=== PATIENT | female | born 1950 | race Caucasian/White ===

== ENCOUNTER → 2016-11-20 | Outpatient (REF) | payer OTHER ==
[~2016-11-20] MED LIST: CLOB-49 EX; COMB0.2S OP; ISTA0.5S OP; MULTCAP8 PO; PRAV40TA2 PO; XALA0.002 OU; [UNRECOGNIZED DRUG - CODE] XX
[2016-11-20 11:51] LABS: ALBUMIN 3.8 GM/DL (3.2-5.2); ALBUMIN/GLOBULIN RATIO 1.03 (1.00-1.93); ALKALINE PHOSPHATASE 83 U/L (45-117); ALT/SGPT 27 U/L (12-78); ANION GAP 8 MEQ/L (8-16); AST/SGOT 21 U/L (15-37); BILIRUBIN,TOTAL 0.5 MG/DL (0.2-1.0); BLOOD UREA NITROGEN 27 MG/DL (7-18); CALCIUM LEVEL 9.1 MG/DL (8.8-10.2); CARBON DIOXIDE LEVEL 28 MEQ/L (21-32); CHLORIDE LEVEL 108 MEQ/L (98-107); CHOLESTEROL LEVEL 220 MG/DL (<200); GLOMERULAR FILTRATION RATE > 60.0 (>45); GLUCOSE, FASTING 96 MG/DL (80-110); POTASSIUM SERUM 4.2 MEQ/L (3.5-5.1); SODIUM LEVEL 144 MEQ/L (136-145); TOTAL PROTEIN 7.5 GM/DL (6.4-8.2); TRIGLYCERIDES LEVEL 204 MG/DL (<150)
== END ==
LOC: M SFHCPLAZ 08:27
PROVIDERS: ATTEND Family Medicine
DX: E78.2 Mixed hyperlipidemia (principal)

== ENCOUNTER → 2017-08-23 | Outpatient (REF) | payer OTHER ==
[~2017-08-23] MED LIST changes: -XALA0.002 OU; +XALA0.007 OU
== END ==
LOC: M SFHCWAGY 09:50
PROVIDERS: ATTEND Nurse Practitioner Family
DX: Z12.4 Encounter for screening for malignant neoplasm of cervix (principal); N95.2 Postmenopausal atrophic vaginitis

== ENCOUNTER → 2017-08-23 | Outpatient (CLI) | payer OTHER ==
--- NOTE | 2017-08-23 13:43 | REPMRS ---
Patient History The patient states she had a clinical breast exam in 08/19 Patient is postmenopausal and is nulliparous. No known family history of cancer. Digital Woman Screen Mammo: August 23, 2017 - Exam #: [id number] Bilateral CC and MLO view(s) were taken. Technologist: Darlene Galo, Technologist Prior study comparison: August 21, 2016, digital woman screen mammo performed at [facility]. August 19, 2015, digital woman screen mammo performed at [facility]. FINDINGS: The breast tissue is heterogeneously dense. This may lower the sensitivity of mammography. There has been no change in the appearance of the mammogram from the prior studies. There is a moderate amount of residual fibroglandular tissue which is fairly symmetric. There is no interval development of dominant mass, areas of architectural distortion, or clustered microcalcification typical of malignancy. ASSESSMENT: BI-RADS/ACR category 1 mammogram. Negative. Recommendation Routine screening mammogram in 1 year (for women over age 40). This mammogram was interpreted with the aid of an FDA-approved computer-aided dectection system. Electronically Signed By: Kota Velázquez MD 08/23/17 [id number]
== END ==
LOC: M WHC 09:02
PROVIDERS: ATTEND Family Medicine
DX: Z12.31 Encounter for screening mammogram for malignant neoplasm of breast (principal); R92.8 Other abnormal and inconclusive findings on diagnostic imaging of breast; Z78.0 Asymptomatic menopausal state

== ENCOUNTER → 2017-10-22 | Outpatient (REF) | payer OTHER ==
[2017-10-22 12:24] LABS: ALBUMIN 4.1 GM/DL (3.2-5.2); ALBUMIN/GLOBULIN RATIO 1.14 (1.00-1.93); ALKALINE PHOSPHATASE 77 U/L (45-117); ALT/SGPT 25 U/L (12-78); ANION GAP 9 MEQ/L (8-16); AST/SGOT 18 U/L (7-37); BILIRUBIN,TOTAL 0.7 MG/DL (0.2-1.0); BLOOD UREA NITROGEN 25 MG/DL (7-18); CALCIUM LEVEL 9.5 MG/DL (8.8-10.2); CARBON DIOXIDE LEVEL 27 MEQ/L (21-32); CHLORIDE LEVEL 106 MEQ/L (98-107); CHOLESTEROL LEVEL 219 MG/DL (<200); CHOLESTEROL RISK RATIO 3.775 (<5); CREATININE FOR GFR 0.88 MG/DL (0.55-1.30); FREE T4 1.11 NG/DL (0.76-1.46); GLOMERULAR FILTRATION RATE > 60.0 (>45); GLUCOSE, FASTING 92 MG/DL (70-100); HDL CHOLESTEROL 58 MG/DL (>40); LDL CHOLESTEROL 112.4 MG/DL (<100); NON-HDL-C 161 MG/DL; POTASSIUM SERUM 4.1 MEQ/L (3.5-5.1); SODIUM LEVEL 142 MEQ/L (136-145); TOTAL PROTEIN 7.7 GM/DL (6.4-8.2); TRIGLYCERIDES LEVEL 243 MG/DL (<150)
== END ==
LOC: M SFHCPLAZ 08:51
DX: E78.2 Mixed hyperlipidemia (principal)
CPT/HCPCS: 84443

== ENCOUNTER 2017-12-04 07:38 | Day surgery (SDC) | payer OTHER ==
[~2017-12-04 07:38] MED LIST changes: +ACETAMINOPHEN 325 MG TAB PO; -CLOB-49 EX; -COMB0.2S OP; -ISTA0.5S OP; -MULTCAP8 PO; +PHENYLEPHRINE HCL 10 % OPHTH. SOL 5ML OS; -PRAV40TA2 PO; +PROPARACAINE 0.5% OPHTH SOL 15ML OS; -XALA0.007 OU; -[UNRECOGNIZED DRUG - CODE] XX
[2017-12-04] MEDS: LIDOCAINE 3.5 % 1ML OPHTH TOPICAL GEL OU (08:53)
[2017-12-04] MEDS: PHENYLEPHRINE 2.5% OPHTH SOL 2ML OS (08:53)
[2017-12-04] MEDS: TROPICAMIDE 1% OPHTH SOLN 2ML OS (08:53)
[2017-12-04] MEDS: OFLOXACIN 0.3 % (OCUFLOX) OPTH SOL 5ML OS (08:54)
[2017-12-04] MEDS: CYCLOPENTOLATE 2% OPHTH SOLN 2ML BTL OS (08:54)
[2017-12-04] MEDS ORDERED: fentaNYL 100 MCG/2 ML INJECTION (J3010) As Ordered (09:30)
[2017-12-04] MEDS ORDERED: MIDAZOLAM INJ 2 MG/2 ML VIAL (J2250) As Ordered (09:31)
[2017-12-04] MEDS: BALANCED SALT IRRIGATION SOLUTION 500ML BAG (FOR OR EYE MACHINE) As Ordered (10:00)
[2017-12-04] MEDS: POVIDONE-IODINE 5% OPHTH PREP SOL 30ML As Ordered (10:00)
[2017-12-04] MEDS: HEALON DUET (HEALON 10MG/ML 0.55ML & HEALON ENDOCOAT 30MG/ML 0.85ML) As Ordered (10:00)
[2017-12-04] MEDS: CEFUROXIME 1MG/0.1ML INTRACAMERAL INJ As Ordered (10:00)
[2017-12-04] MEDS: LIDOCAINE 1% SDV 5 ML VIAL As Ordered (10:00)
[2017-12-04] MEDS ORDERED: TRIMETHOBENZAMIDE 300 MG CAP PO (10:30)
[2017-12-04] MEDS: KETOROLAC 0.5% OPHTH SOLN OS (10:36)
[2017-12-04] MEDS: AcetaZOLAMIDE 500 MG ER CAP PO (10:36)
== END 2017-12-04 10:52 | disposition home or self-care (01) ==
LOC: M SDC 07:38
DX: H25.12 Age-related nuclear cataract, left eye (principal); E78.2 Mixed hyperlipidemia; Z79.899 Other long term (current) drug therapy; E55.9 Vitamin D deficiency, unspecified; N90.4 Leukoplakia of vulva; E74.9 Disorder of carbohydrate metabolism, unspecified; M43.6 Torticollis
CPT/HCPCS: 66984

== ENCOUNTER → 2018-08-29 | Outpatient (CLI) | payer OTHER ==
[~2018-08-29] MED LIST changes: -ACETAMINOPHEN 325 MG TAB PO; +ALPH0.156 OU; +CALC600T60 PO; +CLOB-49 EX; +CLOTCRE3 TOP; +COMB0.2S OP; +ISTA0.5S OP; +MULTCAP8 PO; -PHENYLEPHRINE HCL 10 % OPHTH. SOL 5ML OS; +PRAV40TA2 PO; -PROPARACAINE 0.5% OPHTH SOL 15ML OS; +XALA0.007 OU; +[UNRECOGNIZED DRUG - CODE] XX
--- NOTE | 2018-08-29 10:09 | REP ---
DIGITAL SCREENING BILATERAL MAMMOGRAPHY WITH CAD AND 3D TOMOSYNTHESIS: Comparison mammography August 23, 2017, August 21, 2016, and August 19, 2015. MAMMOGRAPHIC FINDINGS: Breast parenchyma is heterogeneously dense bilaterally in a pattern which may inhibit the sensitivity of mammography as before. The MLO view of the left breast demonstrates a well-circumscribed 6 mm nodule inferiorly which is not seen with confidence on the orthogonal CC view. This is observed on tomosynthesis imaging. This merits further evaluation. It is not definitely apparent previously. Breast parenchyma is otherwise unchanged and unremarkable. IMPRESSION: BIRADS/ACR category 0 mammogram, incomplete. Additional imaging and/or prior images needed. Possible nodular neodensity inferiorly in the left breast merits further evaluation. Diagnostic left breast mammography and focused left breast sonography recommended. This mammogram was interpreted with the aid of an FDA-approved computer-aided detection system. The patient states that she/he has not had a clinical breast exam in over a year. The patient letter being requested is M0. This patient's estimated Tyrer-Cuzick lifetime risk assessment for the breast cancer is 5.9 %.
== END ==
LOC: M WHC 08:55
PROVIDERS: ATTEND Family Medicine
DX: Z12.31 Encounter for screening mammogram for malignant neoplasm of breast (principal); N63.20 Unspecified lump in the left breast, unspecified quadrant

== ENCOUNTER → 2018-09-04 | Outpatient (CLI) | payer MEDICARE, OTHER ==
--- NOTE | 2018-09-04 17:51 | REP ---
Digital diagnostic unilateral left breast mammography with CAD and focused left breast sonography: History: Screening mammography from August 29, 2018 was BIRADS category 0 because of a possible 6 mm nodular neodensity seen on the MLO projection images inferiorly in the left breast. Diagnostic imaging was recommended. Comparison is also made with prior mammography from August 23, 2017 and August 21, 2016. Mammographic findings: Magnified focal spot compression CC, laterally exaggerated CC, ML, and MLO images are acquired of the left breast. These demonstrate heterogeneously dense breast parenchyma as before. A well-circumscribed 6 mm nodular opacity is seen on the MLO and possibly on the true ML view of the left breast inferiorly. However, this could not be visualized or corroborated on the CC projection images. It was not visualized on 3-D tomosynthesis images in the craniocaudal plane either. Sonographic findings: Focused left breast sonography is performed inferiorly from 3 o'clock to 9 o'clock. Heterogeneous fibroglandular background echotexture is seen. No cyst, mass or suspicious abnormality is observed. Impression: BIRADS category 3 probably benign findings. 6 mm well-circumscribed nodule seen inferiorly on the MLO mammography and MLO 3-D tomosynthesis images. 6-month follow-up left breast mammography recommended. BI-RADS/ACR category 3 mammogram. Probably benign findings. Initial short-term followup (usually 6 month) examination. This mammogram was interpreted with the aid of an FDA-approved computer-aided detection system. The patient states that she/he has not had a clinical breast exam in over a year. The patient letter being requested is m#3 . Electronically Signed by Kai Villa MD 09/04/2018 06:59 P
== END ==
LOC: M RAD 14:43
PROVIDERS: ATTEND Family Medicine
DX: N63.20 Unspecified lump in the left breast, unspecified quadrant (principal); R92.8 Other abnormal and inconclusive findings on diagnostic imaging of breast

== ENCOUNTER → 2018-11-06 | Outpatient (REF) | payer OTHER ==
[2018-11-06 10:49] LABS: ALBUMIN 3.8 GM/DL (3.2-5.2); ALT/SGPT 26 U/L (12-78); BILIRUBIN,TOTAL 0.6 MG/DL (0.2-1.0); BLOOD UREA NITROGEN 18 MG/DL (7-18); CALCIUM LEVEL 9.4 MG/DL (8.8-10.2); CARBON DIOXIDE LEVEL 28 MEQ/L (21-32); CHLORIDE LEVEL 104 MEQ/L (98-107); CHOLESTEROL LEVEL 202 MG/DL (<200); CHOLESTEROL RISK RATIO 4.208 (<5); GLOMERULAR FILTRATION RATE > 60.0 (>39); GLUCOSE, FASTING 95 MG/DL (70-100); HDL CHOLESTEROL 48 MG/DL (>40); LDL CHOLESTEROL 114 MG/DL (<100); NON-HDL-C 154 MG/DL; POTASSIUM SERUM 4.3 MEQ/L (3.5-5.1); SODIUM LEVEL 139 MEQ/L (136-145); TOTAL PROTEIN 7.5 GM/DL (6.4-8.2); TRIGLYCERIDES LEVEL 198 MG/DL (<150)
[2018-11-06 10:57] LABS: TOTAL 25(OH) VITAMIN D 44.8 NG/ML (30.0-100.0)
== END ==
LOC: M SFHCPLAZ 08:34
PROVIDERS: ATTEND Family Medicine
DX: E78.2 Mixed hyperlipidemia (principal); E55.9 Vitamin D deficiency, unspecified

== ENCOUNTER → 2019-01-24 | Outpatient (CLI) | payer MEDICARE ==
--- NOTE | 2019-01-24 14:29 | REP ---
DIAGNOSTIC MAMMOGRAM LEFT BREAST WITH 3D TOMOSYNTHESIS: No family history of breast cancer. Tyrer-Cuzick lifetime risk of breast cancer 5.9%. Diagnostic mammogram left breast is performed with 3D tomosynthesis. Comparison made with several prior studies, including the most recent of 08/29/2018 and 09/04/2018. These exams showed a nodular density on left MLO and ML views inferiorly, which was not visualized on the left CC view nor by ultrasound. There is moderately dense fibroglandular tissue in a heterogeneous pattern. The previously noted nodular density is not seen on today's exam. Parenchymal pattern is otherwise unchanged. No new mass or clustered microcalcifications are seen. IMPRESSION: BIRADS 2: BI-RADS/ACR category 2 mammogram. Benign Findings. ACR 2 benign. Previously noted nodular density is not visualized on today's examination. Recommend followup bilateral mammogram August 2019. This mammogram was interpreted with the aid of an FDA-approved computer-aided detection system. The patient states she/he had a clinical breast exam in 08/2018. The patient letter being requested is M1. Electronically Signed by Kota Velázquez MD 01/28/2019 10:03 A
== END ==
LOC: M RAD 13:05
PROVIDERS: ATTEND Family Medicine
DX: R92.8 Other abnormal and inconclusive findings on diagnostic imaging of breast (principal)
CPT/HCPCS: 77065; G0279

== ENCOUNTER → 2019-02-06 | Outpatient (CLI) | payer MEDICARE ==
--- NOTE | 2019-02-07 11:17 | DEXA ---
AP SPINE L1 - L4 0.981 -1.7 0.0 LT FEMUR TOTAL 0.897 -0.9 0.6 LT NECK 0.813 -1.6 0.1 RT FEMUR TOTAL 0.888 -0.9 0.5 RT NECK 0.823 -1.5 0.2 TOTAL BODY TOTAL OTHER COMMENTS: There is low bone density of the spine and hips. The decreased density of the spine does represent a significant change. The decreased density of the left hip does represent a significant change. The decreased density of the right hip does represent a significant change. The density of the spine has decreased 5.0% since the initial exam on 07/14/2008. The spine density has decreased 4.1% since the most recent exam on 08/04/2011. The density of the left hip has decreased 3.3% since the initial exam on 07/14/2008. The density of the left hip has decreased 2.1% since the most recent exam on 08/04/2011. The density of the right hip has decreased 7.0% since the initial exam on 07/14/2008. The density of the right hip has decreased 2.5% since the most recent exam on 08/04/2011. FOLLOW-UP: Recommendation for the next bone density exam: 2 years. SARAH
== END ==
LOC: M WHC 09:08
PROVIDERS: ATTEND Family Medicine
DX: M85.89 Other specified disorders of bone density and structure, multiple sites (principal)

== ENCOUNTER → 2019-08-29 | Outpatient (REF) | payer MEDICARE | LOC: M PLALAB 09:26 | PROVIDERS: ATTEND Nurse Practitioner Family | DX: Z12.4 Encounter for screening for malignant neoplasm of cervix (principal); R87.625 Unsatisfactory cytologic smear of vagina; N95.2 Postmenopausal atrophic vaginitis ==

== ENCOUNTER → 2019-08-29 | Outpatient (CLI) | payer MEDICARE ==
--- NOTE | 2019-08-29 10:41 | REPMRS ---
Patient History The patient states she had a clinical breast exam in August 2019.Patient is postmenopausal and is nulliparous. Family history of endometrial cancer at age 76 in sister. No Hormone Replacement Therapy No Breast Complaints. 3D TOMOSYNTHESIS WAS PERFORMED. The [facility] lifetime risk for breast cancer is 5.6%. Digital Woman Screen Mammo: August 29, 2019 - Exam #: [id number] Bilateral CC and MLO view(s) were taken. Technologists: Ana Hernandez, Technologist; Hilda Montes De Oca, Prior study comparison: January 24, 2019, left breast digital mammo diagnostic unilateral, performed at [facility]. September 04, 2018, left breast digital mammo diagnostic unilateral, performed at [facility]. FINDINGS: The breast tissue is heterogeneously dense. This may lower the sensitivity of mammography. There has been no change in the appearance of the mammogram from the prior studies. There is a moderate amount of residual fibroglandular tissue which is fairly symmetric. There is no interval development of dominant mass, areas of architectural distortion, or clustered microcalcification typical of malignancy. Assessment: BI-RADS/ACR category 1 mammogram. Negative Mammogram. Recommendation Routine screening mammogram in 1 year (for women over age 40). This mammogram was interpreted with the aid of an FDA-approved computer-aided dectection system. Electronically Signed By: Kota Velázquez MD 08/29/19 [id number]
== END ==
LOC: M WHC 09:24
PROVIDERS: ATTEND Family Medicine
DX: Z12.31 Encounter for screening mammogram for malignant neoplasm of breast (principal); Z78.0 Asymptomatic menopausal state; N95.2 Postmenopausal atrophic vaginitis; R87.625 Unsatisfactory cytologic smear of vagina
CPT/HCPCS: 77063; 77067; G0101; G0123

== ENCOUNTER → 2019-11-21 | Outpatient (REF) | payer MEDICARE ==
[2019-11-21 11:45] LABS: ALBUMIN 3.9 GM/DL (3.2-5.2); ALT/SGPT 28 U/L (12-78); BILIRUBIN,TOTAL 0.7 MG/DL (0.2-1.0); BLOOD UREA NITROGEN 23 MG/DL (7-18); CALCIUM LEVEL 9.2 MG/DL (8.8-10.2); CARBON DIOXIDE LEVEL 29 MEQ/L (21-32); CHLORIDE LEVEL 107 MEQ/L (98-107); CHOLESTEROL LEVEL 212 MG/DL (<200); CHOLESTEROL RISK RATIO 3.925 (<5); CREATININE FOR GFR 0.87 MG/DL (0.55-1.30); GLOMERULAR FILTRATION RATE > 60.0 (>39); GLUCOSE, FASTING 97 MG/DL (70-100); HDL CHOLESTEROL 54 MG/DL (>40); LDL CHOLESTEROL 120 MG/DL (<100); NON-HDL-C 158 MG/DL; POTASSIUM SERUM 4.1 MEQ/L (3.5-5.1); SODIUM LEVEL 140 MEQ/L (136-145); TOTAL PROTEIN 7.6 GM/DL (6.4-8.2); TRIGLYCERIDES LEVEL 192 MG/DL (<150)
[2019-11-21 11:53] LABS: TOTAL 25(OH) VITAMIN D 59.2 NG/ML (30.0-100.0)
== END ==
LOC: M SFHCADAM 08:52
PROVIDERS: ATTEND Family Medicine
DX: E78.2 Mixed hyperlipidemia (principal); E55.9 Vitamin D deficiency, unspecified; Z79.899 Other long term (current) drug therapy

== ENCOUNTER → 2020-08-31 | Outpatient (CLI) | payer MEDICARE ==
--- NOTE | 2020-08-31 11:26 | REPMRS ---
Patient History The patient states she had a clinical breast exam in August 2020.Family history of endometrial cancer at age 76 in sister. No Hormone Replacement Therapy Digital Woman Screen Mammo: August 31, 2020 - Exam #: [id number] Bilateral CC and MLO view(s) were taken. Technologist: Ana Hernandez, Technologist Prior study comparison: August 29, 2019, bilateral digital woman screen mammo performed at [facility]. January 24, 2019, left breast digital mammo diagnostic unilateral, performed at [facility]. August 29, 2018, bilateral digital woman screen mammo performed at [facility]. August 23, 2017, digital woman screen mammo performed at [facility]. FINDINGS: There are scattered fibroglandular densities. The Volpara volumetric breast density category is: B. There is a moderate amount of residual fibroglandular tissue which is fairly symmetric. There is no interval development of dominant mass, architectural distortion, or grouped microcalcification typical of malignancy. There has been no change in the appearance of the mammogram from the prior studies. 3-D tomosynthesis shows no additional findings. Assessment: BI-RADS/ACR category 1 mammogram. Negative Mammogram. Recommendation Routine screening mammogram of both breasts in 1 year (for women over age 40). This patient's [facility] Lifetime Breast Cancer RIsk is estimated at 5.2 %. This mammogram was interpreted with the aid of an FDA-approved computer-aided dectection system. Electronically Signed By: Dev Villa MD 08/31/20 [id number]
== END ==
LOC: M WHC 10:03
PROVIDERS: ATTEND Nurse Practitioner Family
DX: Z12.31 Encounter for screening mammogram for malignant neoplasm of breast (principal); Z80.49 Family history of malignant neoplasm of other genital organs
CPT/HCPCS: 77063; 77067; G0463

== ENCOUNTER → 2021-03-10 | Outpatient (CLI) | payer BC, MEDICARE ==
[2021-03-10 11:06] LABS: ALBUMIN 3.9 GM/DL (3.2-5.2); ALT/SGPT 26 U/L (12-78); BILIRUBIN,TOTAL 0.7 MG/DL (0.2-1.0); BLOOD UREA NITROGEN 21 MG/DL (7-18); CALCIUM LEVEL 9.1 MG/DL (8.8-10.2); CARBON DIOXIDE LEVEL 32 MEQ/L (21-32); CHLORIDE LEVEL 104 MEQ/L (98-107); CHOLESTEROL LEVEL 226 MG/DL (<200); CHOLESTEROL RISK RATIO 3.424 (<5); CREATININE FOR GFR 0.86 MG/DL (0.55-1.30); FREE T4 0.97 NG/DL (0.76-1.46); GLOMERULAR FILTRATION RATE > 60.0 (>39); GLUCOSE, FASTING 94 MG/DL (70-100); HDL CHOLESTEROL 66 MG/DL (>40); LDL CHOLESTEROL 125 MG/DL (<100); NON-HDL-C 160 MG/DL; POTASSIUM SERUM 4.4 MEQ/L (3.5-5.1); SODIUM LEVEL 138 MEQ/L (136-145); TOTAL PROTEIN 7.6 GM/DL (6.4-8.2); TRIGLYCERIDES LEVEL 175 MG/DL (<150)
[2021-03-10 11:20] LABS: HEMOGLOBIN A1c 5.7 %
== END ==
LOC: M PLALAB 08:25
PROVIDERS: ATTEND Family Medicine
DX: E78.2 Mixed hyperlipidemia (principal)

== ENCOUNTER → 2021-09-06 | Outpatient (CLI) | payer MEDICARE ==
--- NOTE | 2021-09-06 11:13 | REPMRS ---
Patient History The patient states she had a clinical breast exam on 09-06-2021. Family history of endometrial cancer at age 76 in sister. No Hormone Replacement Therapy Tomosynthesis is performed. Volpara breast density is c. [facility] lifetime risk of breast cancer 4.9%. Patient states no breast complaints today. Patient has signed MRS History Sheet. Digital Woman Screen Mammo: September 06, 2021 - Exam #: [id number] Bilateral CC and MLO view(s) were taken. Technologist: Nikki Kent, Entry Level Software Engineer Prior study comparison: August 31, 2020, bilateral digital woman screen mammo performed at [facility]. August 29, 2019, bilateral digital woman screen mammo performed at [facility]. FINDINGS: The breast tissue is heterogeneously dense. This may lower the sensitivity of mammography. There has been no change in the appearance of the mammogram from the prior studies. There is a moderate amount of residual fibroglandular tissue which is fairly symmetric. There is no interval development of dominant mass, areas of architectural distortion, or clustered microcalcification typical of malignancy. Assessment: BI-RADS/ACR category 1 mammogram. Negative Mammogram. Recommendation Routine screening mammogram in 1 year (for women over age 40). This mammogram was interpreted with the aid of an FDA-approved computer-aided dectection system. Electronically Signed By: Kota Velázquez MD 09/06/21 [id number]
== END ==
LOC: M WHC 09:05
PROVIDERS: ATTEND Nurse Practitioner Women's Health
DX: Z12.31 Encounter for screening mammogram for malignant neoplasm of breast (principal); Z80.49 Family history of malignant neoplasm of other genital organs

== ENCOUNTER → 2022-04-27 | Outpatient (CLI) | payer MEDICARE, BC ==
[2022-04-27 15:41] LABS: ALBUMIN 4.1 GM/DL (3.2-5.2); ALT/SGPT 23 U/L (12-78); BILIRUBIN,TOTAL 0.7 MG/DL (0.2-1.0); BLOOD UREA NITROGEN 25 MG/DL (7-18); CALCIUM LEVEL 10.1 MG/DL (8.8-10.2); CARBON DIOXIDE LEVEL 28 MEQ/L (21-32); CHLORIDE LEVEL 104 MEQ/L (98-107); CHOLESTEROL LEVEL 236 MG/DL (<200); CHOLESTEROL RISK RATIO 3.575 (<5); CREATININE FOR GFR 0.87 MG/DL (0.55-1.30); FREE T4 1.03 NG/DL (0.76-1.46); GLOMERULAR FILTRATION RATE > 60.0 (>39); GLUCOSE, FASTING 94 MG/DL (70-100); HDL CHOLESTEROL 66 MG/DL (>40); LDL CHOLESTEROL 142 MG/DL (<100); NON-HDL-C 170 MG/DL; POTASSIUM SERUM 4.4 MEQ/L (3.5-5.1); SODIUM LEVEL 138 MEQ/L (136-145); TOTAL PROTEIN 7.6 GM/DL (6.4-8.2); TRIGLYCERIDES LEVEL 139 MG/DL (<150)
[2022-04-27 16:16] LABS: HEMOGLOBIN A1c 5.7 %
== END ==
LOC: M PLALAB 09:00
PROVIDERS: ATTEND Family Medicine
DX: E78.2 Mixed hyperlipidemia (principal); E74.9 Disorder of carbohydrate metabolism, unspecified; Z79.899 Other long term (current) drug therapy

== ENCOUNTER → 2022-12-20 | Outpatient (CLI) | payer MEDICARE | LOC: M WHC 08:50 | PROVIDERS: ATTEND Advanced Practice Midwife | DX: Z12.31 Encounter for screening mammogram for malignant neoplasm of breast (principal) ==

== ENCOUNTER → 2023-05-10 | Outpatient (CLI) | payer MEDICARE ==
[2023-05-10 14:37] LABS: HEMATOCRIT 44.9 % (36.0-47.0); HEMOGLOBIN 14.1 g/dl (12.0-15.5); MEAN CORPUSCULAR HEMOGLOBIN 28.1 pg (27.0-33.0); MEAN CORPUSCULAR HGB CONC 31.4 g/dl (32.0-36.5); MEAN CORPUSCULAR VOLUME 89.4 fl (80.0-96.0); PLATELET COUNT, AUTOMATED 271 10^3/uL (150-450); RED BLOOD COUNT 5.02 10^6/uL (4.00-5.40); WHITE BLOOD COUNT 6.1 10^3/uL (4.0-10.0)
[2023-05-10 14:40] LABS: ALBUMIN 3.9 G/DL (3.2-5.2); ALKALINE PHOSPHATASE 86 U/L (46-116); ALT/SGPT 25 U/L (7.0-40); AST/SGOT 16 U/L (<34); BILIRUBIN,TOTAL 0.8 MG/DL (0.3-1.2); BLOOD UREA NITROGEN 30 MG/DL (9-23); CALCIUM LEVEL 9.8 MG/DL (8.3-10.6); CARBON DIOXIDE LEVEL 28 MMOL/L (20-31); CHLORIDE LEVEL 106 MMOL/L (98-107); CHOLESTEROL LEVEL 218 MG/DL (<200); CHOLESTEROL RISK RATIO 3.57 (<5); CREATININE FOR GFR 0.89 MG/DL (0.55-1.30); GLOMERULAR FILTRATION RATE > 60.0 (>39); GLUCOSE, FASTING 93 MG/DL (74-106); HDL CHOLESTEROL 60.9 MG/DL (>40); LDL CHOLESTEROL 121.3 MG/DL (<100); NON-HDL-C 157.1 MG/DL; POTASSIUM SERUM 4.6 MMOL/L (3.5-5.1); SODIUM LEVEL 143 MMOL/L (136-145); TOTAL PROTEIN 7.5 G/DL (5.7-8.2); TRIGLYCERIDES LEVEL 179 MG/DL (<150)
[2023-05-10 15:03] LABS: HEMOGLOBIN A1c 5.5 % (4.0-6.0)
== END ==
LOC: M PLALAB 09:51
PROVIDERS: ATTEND Family Medicine
DX: E78.2 Mixed hyperlipidemia (principal)

== ENCOUNTER 2023-12-20 09:20 | Day surgery (SDC) | payer MEDICARE ==
[~2023-12-20] VITALS: Ht 149.9 cm; Wt 54.6 kg
[~2023-12-20 09:20] MED LIST changes: +AUGM0.0534 TOP; +DORZ2SOL5 OU; +OMEG10002 PO; +RHOP0.02 OU; +THERTAB52 PO
[2023-12-20] MEDS: LIDOCAINE 3.5 % 1ML OPHTH TOPICAL GEL OU ONE (09:58)
[2023-12-20] MEDS: OFLOXACIN 0.3 % (OCUFLOX) OPTH SOL 5ML OD ONE (09:58)
[2023-12-20] MEDS: PHENYLEPHRINE 2.5% OPHTH SOL 2ML OD SCH (09:59)
[2023-12-20] MEDS: TROPICAMIDE 1% OPHTH SOLN 15ML OD SCH (09:59)
[2023-12-20] MEDS: PHENYLEPHRINE 10% OPHTH SOL 5ML OD PRN (09:59)
[2023-12-20] MEDS: ATROPINE SULFATE 1% OPHTH SOLN 2ML BTL OD SCH (09:59)
[2023-12-20] MEDS ORDERED: MIDAZOLAM INJ 2MG/2ML VIAL As Ordered ONE (10:54)
[2023-12-20] MEDS: BSS IRRIG/VANCO(10MG)/TOBRA(5MG)/EPINEPH(1:1000-0.5CC)500ML BAG-ORONLY As Ordered ONE (11:08)
[2023-12-20] MEDS: LIDOCAINE 1% SDV 5ML VIAL As Ordered ONE (11:08)
[2023-12-20] MEDS ORDERED: fentaNYL 100 MCG/2 ML INJECTION As Ordered ONE (11:09)
[2023-12-20] MEDS: VISCOAT 40-30MG/ML 0.5ML SYRINGE As Ordered ONE (11:12)
[2023-12-20] MEDS: CEFUROXIME 1MG/0.1ML INTRACAMERAL INJ As Ordered ONE (11:20)
[2023-12-20 11:30] VITALS: BP 154/75; TEMP 97; O2SAT 100
== END 2023-12-20 12:00 | disposition home or self-care (01) ==
LOC: M SDC 09:20
PROVIDERS: ATTEND Ophthalmology
DX: H25.11 Age-related nuclear cataract, right eye (principal); H57.03 Miosis; Z79.899 Other long term (current) drug therapy
CPT/HCPCS: 66982; A4649; J0697; J2250; J3010; V2632

== ENCOUNTER → 2023-12-25 | Outpatient (CLI) | payer MEDICARE | LOC: M WHC 09:27 | PROVIDERS: ATTEND Advanced Practice Midwife | DX: Z12.31 Encounter for screening mammogram for malignant neoplasm of breast (principal); R92.8 Other abnormal and inconclusive findings on diagnostic imaging of breast ==

== ENCOUNTER → 2024-01-16 | Outpatient (CLI) | payer MEDICARE | LOC: M WHC 08:32 | PROVIDERS: ATTEND Advanced Practice Midwife | DX: Z12.31 Encounter for screening mammogram for malignant neoplasm of breast (principal); N64.59 Other signs and symptoms in breast | CPT/HCPCS: 77065; G0279 ==

== ENCOUNTER → 2024-05-01 | Outpatient (CLI) | payer MEDICARE ==
[2024-05-01 10:33] LABS: HEMATOCRIT 44.7 % (36.0-47.0); HEMOGLOBIN 14.5 g/dl (12.0-15.5); MEAN CORPUSCULAR HEMOGLOBIN 28.3 pg (27.0-33.0); MEAN CORPUSCULAR HGB CONC 32.4 g/dl (32.0-36.5); MEAN CORPUSCULAR VOLUME 87.3 fl (80.0-96.0); PLATELET COUNT, AUTOMATED 223 10^3/uL (150-450); RED BLOOD COUNT 5.12 10^6/uL (4.00-5.40)
[2024-05-01 11:01] LABS: HEMOGLOBIN A1c 5.6 % (4.0-6.0)
[2024-05-01 11:03] LABS: ALKALINE PHOSPHATASE 84 U/L (46-116); ALT/SGPT 18 U/L (7.0-40); AST/SGOT 16 U/L (<34); BILIRUBIN,TOTAL 0.8 MG/DL (0.3-1.2); BLOOD UREA NITROGEN 22 MG/DL (9-23); CALCIUM LEVEL 9.9 MG/DL (8.3-10.6); CARBON DIOXIDE LEVEL 29 MMOL/L (20-31); CHLORIDE LEVEL 106 MMOL/L (98-107); CHOLESTEROL LEVEL 244 MG/DL (<200); CHOLESTEROL RISK RATIO 4.01 (<5); CREATININE FOR GFR 0.77 MG/DL (0.55-1.30); GLOMERULAR FILTRATION RATE > 60.0 (>39); GLUCOSE, FASTING 93 MG/DL (74-106); HDL CHOLESTEROL 60.8 MG/DL (>40); LDL CHOLESTEROL 137.2 MG/DL (<100); NON-HDL-C 183.2 MG/DL; POTASSIUM SERUM 4.5 MMOL/L (3.5-5.1); SODIUM LEVEL 139 MMOL/L (136-145); TOTAL PROTEIN 7.7 G/DL (5.7-8.2); TRIGLYCERIDES LEVEL 230 MG/DL (<150)
== END ==
LOC: M PLALAB 08:46
PROVIDERS: ATTEND Family Medicine
DX: E78.2 Mixed hyperlipidemia (principal); E74.9 Disorder of carbohydrate metabolism, unspecified; H93.13 Tinnitus, bilateral; Z79.899 Other long term (current) drug therapy

== ENCOUNTER → 2024-07-04 | Outpatient (CLI) | payer MEDICARE | LOC: M PLARAD 12:01 | PROVIDERS: ATTEND Physical Medicine & Rehabilitation | DX: G24.3 Spasmodic torticollis (principal) ==

== ENCOUNTER → 2024-12-27 | Outpatient (CLI) | payer MEDICARE | LOC: M RAD 14:27 | PROVIDERS: ATTEND Physical Medicine & Rehabilitation | DX: M47.892 Other spondylosis, cervical region (principal); M50.220 Other cervical disc displacement, mid-cervical region, unspecified level; M48.02 Spinal stenosis, cervical region ==

== ENCOUNTER → 2025-05-01 | Outpatient (CLI) | payer MEDICARE ==
[~2025-05-01] MED LIST changes: -PRAV40TA2 PO; +PRAV40TA85 PO
[2025-05-01 10:31] LABS: PLATELET COUNT, AUTOMATED 240 10^3/uL (150-450)
[2025-05-01 10:56] LABS: ESTIMATED AVERAGE GLUCOSE 117.0 MG/DL (60-110)
[2025-05-01 11:07] LABS: ALT/SGPT 18.0 U/L (7.0-40); AST/SGOT 21.0 U/L (<34); CALCIUM LEVEL 10.1 MG/DL (8.3-10.6); CARBON DIOXIDE LEVEL 29.0 MMOL/L (20-31); CHLORIDE LEVEL 106.0 MMOL/L (98-107); CHOLESTEROL LEVEL 220.0 MG/DL (<200); CHOLESTEROL RISK RATIO 3.53 (<5); CREATININE FOR GFR 0.83 MG/DL (0.55-1.30); GLOMERULAR FILTRATION RATE 73.0 (>39); LDL CHOLESTEROL 129.7 MG/DL (<100); NON-HDL-C 157.7 MG/DL; POTASSIUM SERUM 4.4 MMOL/L (3.5-5.1); SODIUM LEVEL 143.0 MMOL/L (136-145); TRIGLYCERIDES LEVEL 140.0 MG/DL (<150)
[2025-05-01 11:08] LABS: FREE T4 1.51 NG/DL (0.89-1.76)
== END ==
LOC: M PLALAB 08:41
PROVIDERS: ATTEND Family Medicine
DX: E78.2 Mixed hyperlipidemia (principal); H93.13 Tinnitus, bilateral; E74.9 Disorder of carbohydrate metabolism, unspecified

== ENCOUNTER → 2025-08-11 | Outpatient (CLI) | payer MEDICARE | LOC: M PLAIMG 14:16 | PROVIDERS: ATTEND Physical Medicine & Rehabilitation | DX: M47.892 Other spondylosis, cervical region (principal); M43.12 Spondylolisthesis, cervical region; M48.02 Spinal stenosis, cervical region; M50.223 Other cervical disc displacement at C6-C7 level ==